=== PATIENT | male | born 1970 | race Caucasian/White ===

== ENCOUNTER 2019-01-08 08:50 | Day surgery (SDC) | payer OTHER, SELFPAY ==
[2019-01-08] VITALS (8 sets, daily range): BP systolic 132–151; BP diastolic 82–99; PULSE 71–81; RESP 11–16; TEMP 36.1–36.3; O2SAT 94–98; BMI 34.3
--- NOTE | 2019-01-08 | PATH_ITS ---
[facility] Accession Number: [id number] . 01 Material submitted: . gastrointestinal site - GASTRIC BIOPSIES . 01 Clinical history: . R/O H.PYLORI . 02 Diagnosis: Stomach, Biopsies: Gastric antral and body mucosa with mild chronic gastritis. Negative for Helicobacter organisms by immunohistochemistry. Negative for intestinal metaplasia. Negative for dysplasia and malignancy. I01/10/2019 . 02 Electronically signed: . Raghu Blackwood MD, PhD, Pathologist NPI- [id number] . 01 Gross description: . GASTRIC BIOPSIES: Received in formalin are 4 fragment(s) of mcguire, soft tissue measuring 0.1 x 0.1 x 0.1 cm to 0.3 x 0.3 x 0.3 cm which is entirely submitted and submitted entirely in 1 cassette(s) /DMC /DMC . 02 Microscopic: . An immunohistochemical stain was performed to evaluate for Helicobacter organisms and is negative. The control stain showed appropriate reactivity. . * This test was developed and its performance characteristics determined by [facility]. It has not been cleared or approved by the [place]. Food and Drug Administration. The FDA has determined that such clearance or approval is not necessary. This test is used for clinical purposes. It should not be regarded as investigational or for research. . 02 Pathologist provided ICD-10: K29.70 . 02 CPT . 891848, [id number] Performed at: 01 [facility] [address] [facility], [place], [place] [id number] MD Joshua Juárez MD Phone: [phone] Performed at: 02 [facility] [place] [address] [place] [id number] MD Swapna Mai MD Phone: [phone]
--- NOTE | 2019-01-08 10:22 | PM.PREOP ---
Pre-operative Note Interval Note History & Physical reviewed/Exam performed by Physician: Yes Changes to H&P: No ASA Class (for procedural sedation): I
[2019-01-08] MEDS: fentaNYL 250 MCG/5 ML INJ IV (10:40)
[2019-01-08] MEDS: MIDAZOLAM 5 MG/5 ML VIAL IV (10:40)
--- NOTE | 2019-01-08 10:56 | PM.OP.ENDO ---
Operative Date/Time/Diagnoses Date of procedure: 01/08/19 Procedure & Clinicians Study performed: EGD with biopsy Moderate conscious sedation was administered by the endoscopy nurse and supervised by the endoscopist. The following parameters were monitored: Oxygen saturation, heart rate, blood pressure, and response to care. Sedation: 8 mg midazolam, 100 mcg fentanyl Indications: GERD, right upper quadrant and epigastric pain, early satiety Procedure Notes Procedure in detail: Prior to the procedure, history and physical was performed, and patient medications and allergies were reviewed. Preprocedure nursing history and assessment was reviewed. Patient identification and proposed procedure were verified by the physician and nurse in the procedure room. The physical status of the patient was reassessed after the procedure. After informed consent was obtained including risks, benefits, and alternatives, the scope was passed under direct vision. Throughout the procedure, the patient's blood pressure, pulse, and oxygen saturations were monitored continuously. The upper endoscope was introduced through the mouth and advanced to the 2nd portion of the duodenum. Retroflexion was performed in the stomach. The patient tolerated the procedure well. The entire examined esophagus was normal appearing. The Z-line was located at 42 cm from the incisors and was regular. A 2 cm sliding hiatal hernia was noted. The stomach was otherwise normal appearing. Biopsies were taken from the antrum to rule out H pylori. The entire examined duodenum was normal appearing. Ampulla was poorly visualized. Impression: Normal appearing esophagus and regular Z-line Small hiatal hernia Normal appearing stomach. Biopsies taken to rule out H pylori Normal appearing duodenum Sedation minutes: 11 Complications: other (EBL minimal. No complications) Plan for aftercare: Follow-up pathology results Follow anti-reflux diet and lifestyle modification Resume home medication Follow-up in GI clinic as previously scheduled Patient has a contact number available for emergencies. The signs and symptoms of potential delayed complications were discussed with the patient. Return to normal activities tomorrow. Written discharge instructions were provided to the patient. Discharge home with escort
== END 2019-01-08 11:45 | disposition home or self-care (01) ==
PROVIDERS: PCP Family Medicine; Visit Provider Internal Medicine
PROC: 0DJ08ZZ Inspection of Upper Intestinal Tract, Via Natural or Artificial Opening Endoscopic (ICD-10-PCS; CPT 43235; principal; 2019-01-08 10:00)
DX: K29.50 Unspecified chronic gastritis without bleeding (principal); K21.9 Gastro-esophageal reflux disease without esophagitis; K44.9 Diaphragmatic hernia without obstruction or gangrene; R68.81 Early satiety; R10.11 Right upper quadrant pain; R10.13 Epigastric pain
CPT/HCPCS: 43239; 88305; 88342; J2250; J3010